=== PATIENT | male | born 1930 | race Caucasian/White ===

== ENCOUNTER 2017-02-21 14:36 | Emergency (ER) | payer MEDICARE, OTHER ==
[~2017-02-21] VITALS: Ht 180.3 cm; Wt 77.1 kg
[~2017-02-21 14:36] MED LIST: AMLO10TA2; AMLO10TA2 OR; BELL30TI2 OR; INSLANTI; INSUPOW; LISI40TA; LISI40TA OR; METH1INJ12 IJ; ROSU20TA14; ROSU20TA14 OR; TAMS0.4C36 OR; TERA10CA36 OR
[2017-02-21 15:26] VITALS: BP 166/82
== END 2017-02-21 15:52 | disposition home or self-care (01) ==
LOC: ER 14:37
DX: T83.9XXA Unspecified complication of genitourinary prosthetic device, implant and graft, initial encounter (principal); M19.90 Unspecified osteoarthritis, unspecified site; E11.9 Type 2 diabetes mellitus without complications; I10 Essential (primary) hypertension; Z87.442 Personal history of urinary calculi; Z90.89 Acquired absence of other organs; Z79.4 Long term (current) use of insulin